=== PATIENT | female | born 1950 | race Caucasian/White ===

== ENCOUNTER → 2017-04-28 | Outpatient (CLI) | payer MEDICARE, OTHER ==
[~2017-04-28] MED LIST: ALLEGRA ALLERG180 MG PO; ASPIR 8181 MG PO; ASPIRIN325 PO; ATORVASTATIN CA40 MG PO; BAYER PO; CALTRATE 600+D1 EAC1 PO; COLACE100 MG PO; HYDROCODONE-AP1 EAC6 PO; LISINOPRIL-HCT1 EACH PO; METAMUCIL1 EAC1 PO; MILK OF MA2400 MG/10 PO; MIRALAX17 GM PO; NAPROSYN500 MG PO; OXYCODONE HCL 55 MG PO; PANTOPRAZOLE SO40 M1 PO; SIMVASTATIN40 MG PO; TRAMADOL 50 MG50 MG PO; WELCHOL 625 MG625 M1 PO; XARELTO10 MG PO
== END ==
LOC: M.RAD 13:58
DX: M47.896 Other spondylosis, lumbar region (principal); M25.552 Pain in left hip

== ENCOUNTER → 2017-08-17 | Day surgery (SDC) | payer MEDICARE, OTHER ==
--- NOTE | ~2017-08-17 | PROC ---
[address] [address] PROCEDURE REPORT Name: EVELYN CHRISTIANSON Room: [facility].#: [id number] Admission: 08/17/17 Attend Phys: Lamonte Mo MD Discharge: Date of : 48 Report #: [id number] THIS REPORT FOR: //name// For GI report, please see the Provation report in Perceptive 7 content. By: 0627Medical Records Staff [facility] /CYNTHIA
[2017-08-17 12:58] LABS: HEMATOCRIT 42.9 % (37.0-47.0); HEMOGLOBIN 14.3 gm/dL (12.0-15.0); MCH 30.6 pg (26.0-34.0); MCHC 33.4 g/dL (28.0-37.0); MCV 91.6 fL (80.0-100.0); MPV 8.8 fl. (7.2-11.1); RBC 4.69 mil/uL (4.20-5.00); RDW-CV 13.7 % (10.5-14.5); WBC 8.2 thou/uL (4.0-11.0)
[2017-08-17 13:08] LABS: CALCIUM 9.4 mg/dL (8.5-10.1); CREATININE 0.9 mg/dL (0.6-1.3); POTASSIUM 3.5 mmol/L (3.5-5.1)
[2017-08-17 13:13] LABS: ALBUMIN 3.5 g/dL (3.4-5.0); TOTAL BILIRUBIN 0.7 mg/dL (<0.1-1.0); TOTAL PROTEIN 7.3 g/dL (6.4-8.2)
--- NOTE | 2017-08-17 17:35 | EKG ---
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 08/17/17 1735 1301 1301 Saul Wu MD, FACC /EPI
--- NOTE | 2017-09-16 10:09 | PATH ---
[address] [address] PATHOLOGY RPT PROCEDURE Name: LIILANE CHRISTIANSON Room: [facility].#: [id number] Admission: 08/17/17 Date of : 48 Discharge: Report #: [id number] Path Case #: [id number] LCA Accession Number: [id number] . 01 Material submitted: . PART A: DISTAL ESOPHAGEAL, RULE OUT JIMENEZ'S PART B: ASCENDING COLON POLYP . 01 Clinical history: . Right upper quadrant abdominal pain and gastroesophageal reflux . 02 Diagnosis: A. Distal esophageal biopsy: - Benign esophageal and gastric/columnar types mucosa with moderate chronic inflammation typical of reflux, negative for goblet cells/diagnostic Jimenez's metaplasia and dysplasia. . B. Ascending colon polyp: - Tubular adenoma, negative for high-grade dysplasia. (NATO:ramy; 08/19/2017) QMS/08/19/2017 . 02 Electronically signed: . Rigoberto Harris MD, Pathologist NPI- [id number] . 01 Gross description: . A. Received in formalin labeled "Liliane Christianson, distal esophageal BX, rule out Jimenez's," are 2 segments of meyer soft tissue measuring 0.7 x 0.2 x 0.2 cm in aggregate dimensions and ranging from 0.3 to 0.4 cm in maximum dimension. The specimen is submitted entirely in cassette A1. . B. Received in formalin labeled "Liliane Christianson, ascending colon polyp," is a single segment of meyer soft tissue measuring 0.3 cm in maximum dimension. The specimen is entirely submitted in cassette B1. (TSD; 08/18/2017) TOB/TOB . 02 Pathologist provided ICD-10: K20.9, D12.2 . 02 CPT . 121451, 526083 Performed at: [address] [id number] MD Quincy Velasco MD Phone: [phone] Performed at: [address] [place] [address] PATHOLOGY RPT PROCEDURE Name: LILIANE CHRISTIANSON Room: [facility]#: [id number] Admission: 08/17/17 Date of : 48 Discharge: Report #: [id number] Path Case #: [id number] [address], [place] [id number] MD Rigoberto Harris MD Phone: [phone]
== END | disposition home or self-care (01) ==
LOC: M.SUR 09:48
PROVIDERS: Internal Medicine Gastroenterology
DX: Z12.11 Encounter for screening for malignant neoplasm of colon (principal); D12.2 Benign neoplasm of ascending colon; K64.8 Other hemorrhoids; K21.0 Gastro-esophageal reflux disease with esophagitis; K44.9 Diaphragmatic hernia without obstruction or gangrene; K22.8 Other specified diseases of esophagus; I10 Essential (primary) hypertension; E78.5 Hyperlipidemia, unspecified; G43.909 Migraine, unspecified, not intractable, without status migrainosus; Z90.710 Acquired absence of both cervix and uterus; Z90.49 Acquired absence of other specified parts of digestive tract; Z98.890 Other specified postprocedural states; Z88.8 Allergy status to other drugs, medicaments and biological substances; Z98.51 Tubal ligation status; Z79.82 Long term (current) use of aspirin; Z79.899 Other long term (current) drug therapy

== ENCOUNTER → 2018-11-08 | Outpatient (CLI) | payer MEDICARE, OTHER | LOC: M.ULTRA 16:00 | DX: L02.91 Cutaneous abscess, unspecified (principal) ==

== ENCOUNTER 2019-12-03 13:30 | Inpatient (IN) | payer MEDICARE, OTHER ==
[~2019-12-03] VITALS: Ht 152.4 cm; Wt 121.6 kg
--- NOTE | ~2019-12-03 | OP ---
[facility] [address] [place] [address] OPERATIVE REPORT Name: EVELYN CHRISTIANSON Room: [address] IN M.R.#: [id number] Admission: 12/04/19 Attend Phys: Narendra Claros, Discharge: Date of : 48 Report #: [id number] THIS REPORT FOR: //name// cc: Marycruz Ulrich Linda J. DO ~ CC: Marycruz Claros DATE OF SERVICE: 12/05/2019 PREOPERATIVE DIAGNOSIS: Left abdominal wall abscess. POSTOPERATIVE DIAGNOSIS: Left abdominal wall abscess. OPERATION: Excisional debridement of abdominal wall, 6 x 6 cm. SURGEON: Yrn Batista MD ANESTHESIA: General. ESTIMATED BLOOD LOSS: Minimal. SPECIMEN: Deep tissue for culture. DESCRIPTION OF PROCEDURE: After informed consent was obtained, the patient was brought to the operating room and placed supine. SCDs were placed and working, preoperative antibiotics were administered, general anesthesia was induced. The abdomen was prepped and draped in the usual sterile fashion. This was an excisional debridement. Depth was down through the muscle. 100% of the wound was debrided. Post-debridement wound area was 6 x 6 cm. There were no complications. I took the cautery and excised away all of the necrotic tissue down through the muscle. This was excisional. The area was then irrigated and packed with sterile gauze. Sterile dressings were applied. COMPLICATIONS: None. DISPOSITION: The patient was taken to recovery in satisfactory condition. By: [id number] Batista MD /nt
[~2019-12-03 13:30] MED LIST changes: -ATORVASTATIN CA40 MG PO; +LIPITOR40 MG PO
[2019-12-03 13:39] VITALS: BP 152/58
[2019-12-03 14:17] LABS: ABSOLUTE LYMPHOCYTES 1.4 thou/uL (0.8-5.3); ABSOLUTE MONOCYTES 0.8 thou/uL (0.0-1.2); ABSOLUTE NEUTROPHILS 11.1 thou/uL (1.6-8.1); BASOPHILS 0.3 %; EOSINOPHILS 0.3 %; HEMATOCRIT 40.3 % (37.0-47.0); HEMOGLOBIN 13.5 gm/dL (12.0-15.0); LYMPHOCYTES 10.3 %; MCH 30.1 pg (26.0-34.0); MCHC 33.5 g/dL (28.0-37.0); MCV 89.7 fL (80.0-100.0); MONOCYTES 6.2 %; MPV 9.2 fl. (7.2-11.1); NUCLEATED RBCS 0 /100WBC; PLATELET COUNT* 299 thou/uL (150-400); POLYS 82.9 %; RBC 4.49 mil/uL (4.20-5.00); RDW-CV 13.8 % (10.5-14.5); WBC 13.4 thou/uL (4.0-11.0)
[2019-12-03 14:21] LABS: CALCIUM 9.2 mg/dL (8.5-10.1); CREATININE 0.9 mg/dL (0.6-1.3); POTASSIUM 3.4 mmol/L (3.5-5.1)
[2019-12-03 14:25] LABS: ALBUMIN 3.3 g/dL (3.4-5.0); MAGNESIUM 1.8 mg/dL (1.8-2.4); TOTAL BILIRUBIN 0.8 mg/dL (<0.1-1.0); TOTAL PROTEIN 7.8 g/dL (6.4-8.2)
[2019-12-03 17:14] LABS: URINE BILIRUBIN NEGATIVE (Negative); URINE BLOOD 1+ (Negative); URINE CLARITY CLEAR; URINE COLOR YELLOW; URINE GLUCOSE-RANDOM NEGATIVE (Negative); URINE KETONES NEGATIVE (Negative); URINE LEUKOCYTES-REFLEX TRACE (Negative); URINE NITRITE-REFLEX NEGATIVE (Negative); URINE PROTEIN NEGATIVE (Negative); URINE SPECIFIC GRAVITY 1.015 (1.005-1.030); URINE UROBILINOGEN 0.2 E.U./dl (0.2-1.0)
[2019-12-03 17:26] LABS: BACTERIA-REFLEX 1-9 Few /HPF (None Seen); CASTS None Seen /LPF (None Seen); CRYSTALS None Seen /LPF (None Seen); SQUAMOUS 4-10 Moderate /LPF (0-3); URINE RBC 0-2 Rare /HPF (0-2); URINE WBC-REFLEX 0-5 Rare /HPF (0-5)
[2019-12-03 19:15] VITALS: BP 107/59
[2019-12-03 20:30] VITALS: BP 118/57
--- NOTE | 2019-12-04 05:56 | NUR ---
PATIENT ARRIVED PRIOR TO SHIFT CHANGE. PATIENT ADMISSION HISTORY AND ASSESSMENT WAS COMPLETED CHARTED. ABD WAS PLACED OVER ABDOMINAL ABCESS AND PICTURE WAS PLACED IN CHART. PATIENT HAS BEEN NPO SINCE MIDNIGHT FOR POSSIBLE I&D TODAY. WILL CONTINUE TO MONITOR.
[2019-12-04 09:25] LABS: CALCIUM 8.6 mg/dL (8.5-10.1); CREATININE 0.8 mg/dL (0.6-1.3); POTASSIUM 3.2 mmol/L (3.5-5.1)
[2019-12-04 09:28] LABS: MAGNESIUM 1.9 mg/dL (1.8-2.4)
[2019-12-04 09:35] VITALS: BP 145/59
--- NOTE | 2019-12-04 15:45 | EKG ---
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
--- NOTE | 2019-12-04 21:31 | NUR ---
PT CONTINUE TON ISOLATION FOR MRSA IN ABD WOUND.
[2019-12-05] VITALS: BP 140/51
[2019-12-05 01:03] VITALS: BP 140/51
[2019-12-05 03:42] LABS: HEMATOCRIT 36.7 % (37.0-47.0); MCH 29.8 pg (26.0-34.0); MCHC 32.8 g/dL (28.0-37.0); MCV 90.7 fL (80.0-100.0); MPV 8.6 fl. (7.2-11.1); RBC 4.05 mil/uL (4.20-5.00); RDW-CV 13.6 % (10.5-14.5); WBC 7.6 thou/uL (4.0-11.0)
[2019-12-05 03:45] LABS: CALCIUM 8.4 mg/dL (8.5-10.1); CREATININE 0.7 mg/dL (0.6-1.3); MAGNESIUM 1.9 mg/dL (1.8-2.4); POTASSIUM 4.2 mmol/L (3.5-5.1)
--- NOTE | 2019-12-05 05:31 | NUR ---
PT SLEPT FAIRLY WELL SHE STATES OVERNIGHT, RECEIVING IV MORPHINE AT HS FOR CO ABD WOUND PAIN WITH GOOD RESULT. UP WITH SBA TO BR TO VOID. LWRIST IVF INFUSED PER PUMP AND ABX GIVEN ORDERED. POTASSIUM REPLACED AND LAB WNL THIS MORNING. PT HAS BEEN NPO SINCE MIDNIGHT FOR I&D ABD WOUND THIS MORNING IN OR. PT REPORTS "PIMPLE" ERUPTING ON R KNEE, DR AWARE SHE STATES. REMAINS ON CONTACT ISOLATION FOR MRSA WOUND. TO HAVE VANC TROUGH 1130 THIS MORNING. AOX4, ABLE TO USE CALL LITE AND MAKE NEEDS KNOWN.
[2019-12-05 06:20] VITALS: BP 181/76
[2019-12-05 09:00] VITALS: BP 121/91
[2019-12-05 12:35] VITALS: BP 130/77
--- NOTE | 2019-12-05 19:36 | NUR ---
PATIENT RESTING IN BED. PATIENT IS UP STANDBY ASSIST.PATIENT HAS I&D OF LUQ THIS AM WITHOUT INCIDENT. PATIENT HAS HAD COMPALINTS OF PAIN, TREATED ADEQUATELY WITH MEDICATION. PATIENT DENIES ANY NEEDS AT THIS TIME. CALL LIGHT WITHIN REACH.
[2019-12-05 20:00] VITALS: BP 142/43
--- NOTE | 2019-12-06 04:25 | NUR ---
PT A&O. MEDS GIVEN ORDERED. PAIN MANAGED WITH NORCO. DRESSING C/D/I. PT UP INDEPENDENTLY IN ROOM. ISOLATION FOR MRSA. NO OTHER CONCERNS AT THIS TIME. WILL CONTINUE TO MONITOR.
[2019-12-06 07:50] VITALS: BP 146/56
--- NOTE | 2019-12-06 11:07 | PATH ---
[address] [address] PATHOLOGY RPT PROCEDURE Name: EVELYN CHRISTIANSON Room: [address] IN [facility].#: [id number] Admission: 12/04/19 Date of : 48 Discharge: Report #: [id number] Path Case #: [id number] Note LCA Accession Number: [id number] TESTS RESULT FLAG UNITS REF RANGE LAB Clinician Provided Cytology Information No. of containers..01 Other (Miscellaneous) Source: ABDOMINAL WALL ABSCE Clinician ICD10: 01 L02.211 DIAGNOSIS: 02 ABDOMINAL WALL ABSCESS NEGATIVE FOR MALIGNANT CELLS. NECROTIC AND ACUTELY INFLAMMED FIBROFATTY TISSUE. THIS INTERPRETATION INCLUDES EVALUATION OF A CELL BLOCK. Signed out by: 02 Rigoberto Harris MD, Pathologist NPI- [id number] Performed by: 01 Marycruz Childers, Telegraphic Service Dispatcher ([facility]) Gross description: 01 7ML, BRWN W TISSUE, 1 CB /LCS 12/05/2019 1758 Local FLAG LEGEND: L-Low Normal,H-High Normal,LL-Alert Low,HH-Alert High <-Panic Low,>-Panic High,A-Abnormal,AA-Critical Abnormal Performed at: 01 [facility] [address] [place] [address] Quincy Velasco MD, [address] [address] Rigoberto Harris MD, Specimen Comment: A courtesy copy of this report has been sent to [phone] Specimen Comment: Report sent to Performed at: 01 [facility] [address], [place], [place] [id number] MD Quincy Velasco MD Phone: [phone]
--- NOTE | 2019-12-06 14:00 | NUR ---
SPOKE WITH PT.AND IN ROOM. HE ASSISTS HER NEEDED AT HOME. SHE SAID THEY USUALLY SHARE CHORES. HE USUALLY COOKS THE MEALS AND SHE CLEANS UP. SHE HAS A CANE AND SHOWER SEAT,GRAB BARS. NURSING SAID UP AD JOANNE HERE WITH STEADY GAIT. HAS 14 STAIRS TO GET INSIDE AT HOME WITH A LANDING AFTER THE FIRST 7. SHE DOESN'T WALK MUCH SHE SAID. SHE NOR FEEL THEY CAN DO HER DRESSING CHANGES AT HOME. IS INTERESTED IN HOME HEALTH. SHE CHOSE [facility] LONG MEDICARE PAYS. TOLD HER MEDICARE PAYS 100% FOR VISITS. FAXED REFERRAL TO [facility]. [place]ST[place] FROM CALLED AND SAID THEY CAN ACCEPT ON SERVICE. FAX DISCHARGE ORDERS AT [place] AND CALL TO NOTIFY. NGOZI [phone].
[2019-12-06 15:41] VITALS: BP 146/56
[2019-12-06 16:00] VITALS: BP 143/56
--- NOTE | 2019-12-06 17:53 | NUR ---
PATIENT RESTING IN BED. PATIENT HAS HAD COMPLAINTS OF ABDOMINAL PAIN, TREATED ADEQUATELY WITH MEDICATION. PATIENT IS UP AD JOANNE TO BATHROOM. DRESSING TO LUQ CHANGED BY HAYLEE STUDENT THIS AM. PATIENT HAS GOOD APPETITE. PATIENT DENIES ANY NEEDS AT THIS TIME. CALL LIGHT WITHIN REACH.
[2019-12-06 20:00] VITALS: BP 145/52
[2019-12-07 03:46] LABS: HEMATOCRIT 36.8 % (37.0-47.0); HEMOGLOBIN 12.2 gm/dL (12.0-15.0); MCH 29.6 pg (26.0-34.0); MCHC 33.1 g/dL (28.0-37.0); MCV 89.5 fL (80.0-100.0); MPV 8.6 fl. (7.2-11.1); RBC 4.11 mil/uL (4.20-5.00); RDW-CV 13.8 % (10.5-14.5); WBC 8.3 thou/uL (4.0-11.0)
[2019-12-07 03:52] LABS: MAGNESIUM 1.8 mg/dL (1.8-2.4); POTASSIUM 3.9 mmol/L (3.5-5.1)
--- NOTE | 2019-12-07 04:09 | NUR ---
PT A&O X 4. IV ABX GIVEN ORDERED. UP INDEPENDENTLY IN ROOM. DRESSING TO ABD LUQ C/D/I. ISOLATION MAINTAINED. PT SLEPT ON AND OFF. WILL CONTINUE TO MONITOR.
[2019-12-07] MEDS ORDERED: LINEZOLID600 MG PO (07:33)
[2019-12-07] MEDS ORDERED: HYDROCODON-ACE1 EAC7 PO (07:33)
[2019-12-07 08:00] VITALS: BP 150/67
[2019-12-07 09:23] VITALS: BP 146/56
--- NOTE | 2019-12-07 09:24 | NUR ---
Pt discharging to home today, faxed dc orders and med list to [facility]. No IVABX needs per nurse.
[2019-12-07 10:22] VITALS: BP 146/56
--- NOTE | 2019-12-07 17:45 | NUR ---
PT. AOX4, VSS, DENIES PAIN, MRSA PRECAUTIONS. CALL LIGHT AND PERSONAL BELONGINGS PLACED WITHIN REACH. DC ORDERS RECEIVED. PT. REFUSED TO HAVE DC WOUND PIC TAKEN BY THIS NURSE STATING THAT THE SURGERY TEAM TOOK PICS THIS MORNING AND CHANGED DRESSING. DC PACKET GIVEN TO PT AND DISCUSSED MEDICATIONS, ACTIVITY AND F/UP APPTS. PT. LEFT AFTER LUNCH BY WHEELCHAIR AND PICKED UP BY BY ER.
== END 2019-12-07 14:20 | disposition home health service (06) | DRG 580 ==
LOC: M.ERS 13:30 → M.TBA-ER 16:22 → M.ORTHSURG 19:31
PROVIDERS: Internal Medicine; Personal Emergency Response Attendant; ADMIT Family Medicine; ATTEND Family Medicine
PROC: 0KBL0ZZ Excision of Left Abdomen Muscle, Open Approach (ICD-10-PCS; principal; 2019-12-05)
DX: L02.211 Cutaneous abscess of abdominal wall (principal); Z68.43 Body mass index [BMI] 50.0-59.9, adult; E44.1 Mild protein-calorie malnutrition; L03.311 Cellulitis of abdominal wall; E66.01 Morbid (severe) obesity due to excess calories; I10 Essential (primary) hypertension; G89.29 Other chronic pain; M54.9 Dorsalgia, unspecified; E78.5 Hyperlipidemia, unspecified; B95.62 Methicillin resistant Staphylococcus aureus infection as the cause of diseases classified elsewhere; E87.6 Hypokalemia; Z88.6 Allergy status to analgesic agent; Z88.8 Allergy status to other drugs, medicaments and biological substances; Z86.14 Personal history of Methicillin resistant Staphylococcus aureus infection; Z20.828 Contact with and (suspected) exposure to other viral communicable diseases

== ENCOUNTER → 2019-12-12 | Outpatient (CLI) | payer MEDICARE, OTHER ==
[~2019-12-12] MED LIST changes: +HYDROCODON-ACE1 EAC7 PO; +LINEZOLID600 MG PO
== END ==
LOC: M.WC 09:20
PROVIDERS: ATTEND Surgery
DX: L02.211 Cutaneous abscess of abdominal wall (principal); E66.01 Morbid (severe) obesity due to excess calories; G89.29 Other chronic pain; I10 Essential (primary) hypertension; K21.9 Gastro-esophageal reflux disease without esophagitis; F32.9 Major depressive disorder, single episode, unspecified; Z68.43 Body mass index [BMI] 50.0-59.9, adult; Z90.710 Acquired absence of both cervix and uterus; Z90.49 Acquired absence of other specified parts of digestive tract; Z86.14 Personal history of Methicillin resistant Staphylococcus aureus infection; Z79.82 Long term (current) use of aspirin

== ENCOUNTER 2019-12-19 10:51 | Inpatient (IN) | payer MEDICARE, OTHER ==
[~2019-12-19] VITALS: Ht 152.4 cm; Wt 127.0 kg
--- NOTE | ~2019-12-19 | OP ---
[address] [address] OPERATIVE REPORT Name: EVELYN CHRISTIANSON Room: [address] IN M.R.#: [id number] Admission: 12/19/19 Attend Phys: Narendra Claros, Discharge: Date of : 48 Report #: [id number] THIS REPORT FOR: //name// cc: Marycruz Ulrich Linda J. DO ~ CC: Marycruz Claros DATE OF SERVICE: 12/20/2019 PREOPERATIVE DIAGNOSIS: Left abdominal wound, 7 x 6 x 5 cm. POSTOPERATIVE DIAGNOSIS: Left abdominal wound, 7 x 6 x 5 cm. OPERATION: Excisional debridement of 7 x 6 cm left abdominal nonhealing surgical wound. SURGEON: Yrn Batista MD ANESTHESIA: General. ESTIMATED BLOOD LOSS: Minimal. SPECIMEN: None. DESCRIPTION OF PROCEDURE: After informed consent was obtained, the patient was brought to the operating room and placed supine. SCDs were placed and working, preoperative antibiotics were administered, general anesthesia was induced. The abdomen was prepped and draped in the usual sterile fashion. This was an excisional debridement. Depth was down through the subcutaneous tissue down through the muscle. 100% of the wound was debrided. Post-debridement, wound area was 7 x 6 x 5 cm. I used the cautery to debride away tissue down through the muscle. 100% of the wound was debrided. It was then irrigated copiously with normal saline and packed with sterile gauze. Sterile dressings were applied. COMPLICATIONS: None. DISPOSITION: The patient was taken to recovery in satisfactory condition. By: [id number] Batista MD /nt
[2019-12-19 11:05] VITALS: BP 151/56
[2019-12-19 11:51] LABS: ABSOLUTE EOSINOPHILS 0.1 thou/uL (0.0-0.7); ABSOLUTE LYMPHOCYTES 1.3 thou/uL (0.8-5.3); ABSOLUTE MONOCYTES 0.4 thou/uL (0.0-1.2); ABSOLUTE NEUTROPHILS 5.6 thou/uL (1.6-8.1); BASOPHILS 0.5 %; EOSINOPHILS 1.4 %; HEMATOCRIT 38.4 % (37.0-47.0); HEMOGLOBIN 12.6 gm/dL (12.0-15.0); LYMPHOCYTES 17.9 %; MCH 29.2 pg (26.0-34.0); MCHC 32.7 g/dL (28.0-37.0); MCV 89.4 fL (80.0-100.0); MONOCYTES 5.2 %; MPV 7.6 fl. (7.2-11.1); NUCLEATED RBCS 0 /100WBC; PLATELET COUNT* 175 thou/uL (150-400); WBC 7.4 thou/uL (4.0-11.0)
[2019-12-19 11:52] LABS: URINE BILIRUBIN NEGATIVE (Negative); URINE BLOOD 2+ (Negative); URINE CLARITY CLEAR; URINE COLOR YELLOW; URINE GLUCOSE-RANDOM NEGATIVE (Negative); URINE KETONES TRACE (Negative); URINE NITRITE-REFLEX NEGATIVE (Negative); URINE PROTEIN NEGATIVE (Negative); URINE UROBILINOGEN 0.2 E.U./dl (0.2-1.0)
[2019-12-19 11:53] LABS: URINE LEUKOCYTES-REFLEX 2+ (Negative)
[2019-12-19 12:03] LABS: CALCIUM 8.7 mg/dL (8.5-10.1); CREATININE 0.9 mg/dL (0.6-1.3); POTASSIUM 3.5 mmol/L (3.5-5.1)
[2019-12-19 12:06] LABS: CASTS None Seen /LPF (None Seen); CRYSTALS None Seen /LPF (None Seen); MUCUS 0-3 Light strn/LPF (None Seen); SQUAMOUS 4-10 Moderate /LPF (0-3)
[2019-12-19 12:07] LABS: ALBUMIN 3.4 g/dL (3.4-5.0); TOTAL BILIRUBIN 0.6 mg/dL (<0.1-1.0); TOTAL PROTEIN 6.9 g/dL (6.4-8.2)
[2019-12-19 15:16] VITALS: BP 156/63
[2019-12-19 16:00] VITALS: BP 153/52
[2019-12-19 17:02] LABS: CALCIUM 8.8 mg/dL (8.5-10.1); CREATININE 0.8 mg/dL (0.6-1.3); POTASSIUM 3.6 mmol/L (3.5-5.1)
[2019-12-19 17:05] LABS: MAGNESIUM 1.8 mg/dL (1.8-2.4); PHOSPHORUS* 3.1 mg/dL (2.5-4.9)
--- NOTE | 2019-12-19 17:26 | NUR ---
pt remained alert and oriented. pt resting in bed. awaiting dressing change supplies. isolation maintained. fall risk precautions in place. hourly rounding completed. will continue to monitor.
--- NOTE | 2019-12-19 17:56 | NUR ---
THIS NURSE AGREES WITH ASSESSMENT BY ORIENTEE.
[2019-12-19 22:45] VITALS: BP 126/55
--- NOTE | 2019-12-20 06:41 | NUR ---
PATIENT HAS SLEPT OFF AND ON DURING THE NIGHT. VSS ON RA. MEDICATIONS GIVEN ORDERED AND CHARTED. PATIENT HAS REMAINED NPO SINCE MIDNIGHT D/T SCHEDULED I&D TO BE DONE THIS AM. DRESSING TO LEFT LOWER QUADRANT IS C/D/I. IV IN LEFT AC-NS W/2OK+@ 100ML/HR. PATIENT TRANSFERRED TO TELEMETRY ROOM 205 THIS AM. REPORT GIVEN TO NIGHT NURSE RIA.
--- NOTE | 2019-12-20 07:20 | NUR ---
CHANGE OF SHIFT BEDSIDE REPORT GIVEN PATIENT SEEN AT BEDSIDE, IN BED ASLEEP ASSUMED PATIENT CARE
[2019-12-20 08:00] VITALS: BP 165/61
--- NOTE | 2019-12-20 08:24 | EKG ---
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
--- NOTE | 2019-12-20 10:48 | NUR ---
WOUND NURSE: UNABLE TO ASSESS PATIENT AT THIS TIME REALTED TO BEING IN SURGERY FOR I/D OF ABDOMINAL WOUND. WILL FOLLOW UP AT LATER TIME
--- NOTE | 2019-12-20 13:01 | NUR ---
Pt out of room for debridement, spoke with in room. Pt normally independent. Pt recently dc to home with [facility] and IVABX, plan to resume at dc. Pt has a cane that she uses PRN. No home o2. Hx of skilled at [facility]. Following
[2019-12-20 16:40] VITALS: BP 147/52
[2019-12-21] VITALS: BP 153/66
[2019-12-21 08:00] VITALS: BP 135/65
--- NOTE | 2019-12-21 11:05 | NUR ---
WOUND NURSE: KARL WITH PRIMARY RN. POST OP DRESSING REMAINS INTACT AND DR. ATKINS TO CHANGE WITH EVAL LATER TODAY. SPOKE WITH PT WHO WAS UP IN CHAIR. DRESSING EVALUATED AND WAS C/D/I. PT DENIES QUESTIONS OR NEEDS AT THIS TIME.
--- NOTE | 2019-12-21 14:44 | NUR ---
Nutrition: Pt admitted with diarrhea. Assessed for high BMI. She was NPO and now has regular diet ordered. Post-op abd wound. Had MRSA on abd. Wt: 280#. H/o GERD, HTN. Physician indicated mild PCM - defer. Albumin 3.4. Spoke with RN, pt eating well. Low nutrition risk.
--- NOTE | 2019-12-21 16:06 | NUR ---
Surg following for wound care. IVABX. Therapy evals. ?[place], current with [facility]
[2019-12-21 16:14] VITALS: BP 139/65
[2019-12-21 21:13] VITALS: BP 155/73
--- NOTE | 2019-12-22 04:33 | NUR ---
PT RECEIVED ALL ABX/FLUIDS SCHEDULED. UP STANDBY ASSIST TO COMMODE REQUIRES ASSISTANCE WITH TOILETING. REPORTS SLIGHT ABDOMINAL PAIN BUT NOT ENOUGH TO NEED PAIN MEDICATION. SHE SAYS IT HURTS WHEN MOVING. ALERT AND ORIENTED, ROOM AIR. ISO PRECAUTIONS
[2019-12-22 05:42] LABS: HEMATOCRIT 30.2 % (37.0-47.0); MCH 30.1 pg (26.0-34.0); MCHC 33.2 g/dL (28.0-37.0); MCV 90.7 fL (80.0-100.0); MPV 8.2 fl. (7.2-11.1); RBC 3.33 mil/uL (4.20-5.00); WBC 4.8 thou/uL (4.0-11.0)
[2019-12-22 06:29] LABS: ALBUMIN 2.7 g/dL (3.4-5.0); CALCIUM 8.1 mg/dL (8.5-10.1); CREATININE 0.7 mg/dL (0.6-1.3); MAGNESIUM 1.5 mg/dL (1.8-2.4); POTASSIUM 3.8 mmol/L (3.5-5.1); TOTAL BILIRUBIN 0.4 mg/dL (<0.1-1.0); TOTAL PROTEIN 5.5 g/dL (6.4-8.2)
[2019-12-22 08:00] VITALS: BP 148/71
[2019-12-22 16:00] VITALS: BP 144/69
[2019-12-22 22:20] VITALS: BP 155/71
[2019-12-23 00:14] VITALS: BP 144/71
[2019-12-23 05:28] LABS: HEMOGLOBIN 9.9 gm/dL (12.0-15.0); MCH 29.8 pg (26.0-34.0); MCHC 33.1 g/dL (28.0-37.0); MCV 90.2 fL (80.0-100.0); MPV 8.8 fl. (7.2-11.1); RBC 3.33 mil/uL (4.20-5.00); RDW-CV 14.3 % (10.5-14.5); WBC 5.1 thou/uL (4.0-11.0)
[2019-12-23 05:57] LABS: ALBUMIN 2.5 g/dL (3.4-5.0); CALCIUM 8.2 mg/dL (8.5-10.1); CREATININE 0.8 mg/dL (0.6-1.3); MAGNESIUM 1.6 mg/dL (1.8-2.4); POTASSIUM 3.5 mmol/L (3.5-5.1); TOTAL BILIRUBIN 0.2 mg/dL (<0.1-1.0); TOTAL PROTEIN 5.5 g/dL (6.4-8.2)
--- NOTE | 2019-12-23 08:38 | NUR ---
PATIENT HAS SLEPT OFF AND ON DURING THE NIGHT. VSS ON RA. MEDICATIONS GIVEN ORDERED AND CHARTED. PATIENT REMAINS ON ISOLATION FOR MRSA AND C-DIFF. PATIENT UP AD-JOANNE IN ROOM TO BSC AND CHAIR. DRESSING TO LEFT LOWER QUADRANT IS C/D/I. NEW IV PLACE IN LEFT UPPER ARM-NS W/2Ok+ @ 100ML/HR. ABT'S GIVEN PO AND IV WITHOUT AND ADVERSE SIDE EFFECTS NOTED. PATIENT INSTRUCTED TO USE CALL LIGHT WHEN NEEDING ASSISTANCE. HOURLY ROUNDS MADE. WILL CONTINUE WITH PLAN OF CARE AND NURSING TO MONITOR.
[2019-12-23 16:00] VITALS: BP 134/71
--- NOTE | 2019-12-23 18:01 | NUR ---
PT IS AO X4 VSS, CURRENTLY ON ISOLATION FOR MRSA WOUND AND CDIFF. PT HAD ABSCESS OF ABD THAT HAD I&D DONE A FEW DAYS AGO. BANDAGE HAS MODERATE AMOUNT OF DARK BROWN DRAINAGE ON IT. PT IS OBESE AND UP AD JOANNE WITH HELP OF WALKER. SHE HAS HAD TWO BMs TODAY AND THE LAST WAS MORE FORMED THAN THE FIRST. SHE HAS SAT UP IN THE CHAIR TODAY AND ON BEDSIDE. MEDS WERE GIVEN PER ORDER, PT ATE MOST OF ALL MEALS TODAY WITHOUT COMPLAINT OF NAUSEA OR VOMITING.
[2019-12-23 21:45] VITALS: BP 158/58
[2019-12-24] VITALS: BP 157/69
[2019-12-24 05:13] LABS: HEMATOCRIT 29.6 % (37.0-47.0); HEMOGLOBIN 9.9 gm/dL (12.0-15.0); MCH 30.1 pg (26.0-34.0); MCHC 33.4 g/dL (28.0-37.0); MCV 90.1 fL (80.0-100.0); MPV 9.1 fl. (7.2-11.1); RBC 3.29 mil/uL (4.20-5.00); WBC 6.9 thou/uL (4.0-11.0)
--- NOTE | 2019-12-24 05:35 | NUR ---
PT REPORTS PAIN IN LEGS AND GIVEN HYDROCODONE SLEPT WELL, ALERT AND ORIENTED. SHE IS STANDBY ASSIST TO RESTROOM. RECEIVED ALL MEDS SCHEDULED.
[2019-12-24 06:42] LABS: CALCIUM 7.8 mg/dL (8.5-10.1); CREATININE 0.8 mg/dL (0.6-1.3); MAGNESIUM 1.5 mg/dL (1.8-2.4); POTASSIUM 3.9 mmol/L (3.5-5.1)
[2019-12-24 08:00] VITALS: BP 152/60
--- NOTE | 2019-12-24 10:09 | NUR ---
RECIEVED REPORT AROUND 0715. ASSUMED CARE. PT IN CHAIR THIS AM. LEFT AC IV INTACT. ABX RUNNING. MED/SURG STATUS. ISOLATION PRECAUTIONS INTACT. BOWELS ARE MORE FORMED THIS AM. PT STATED "NO" FOR ANY PAIN. PT ALSO STATED "I STARTED HAVING FORMED STOOLS YESTERDAY" MEDS GIVEN THIS AM PER APR. CALL LIGHT [place] IVONNE. WILL CONTINUE TO MONITOR.
--- NOTE | 2019-12-24 14:38 | NUR ---
SPOKE WITH PRIMARY NURSE AND DRESSING CHANGES TO ABDOMEN STILL BEING DONE PER GENERAL SURGERY. REPORT CURRENT DRESSING IS C/D/I. INSTRUCTED TO NOTIFY WOUND CARE NURSE IF GENRERAL SURGERY IS TO STOP WOUND CARE AND WE WILL ELVALUATE AND TREAT AT THAT TIME, SPOKE WITH PT WHO DENIES NEEDS AT THIS TIME. WILL CONTINUE TO FOLLOW PT AND ADRESS ANY NEEDS.
--- NOTE | 2019-12-24 14:51 | NUR ---
RIGHT CEPHALIC VESSEL ACCESSED FOR 4 TURKISH SINGLE LUMEN PICC. LINE PRE-TRIMMED TO 38CM AND ADVANCED BUT RESISTANCE MET AT THE AXILLA-SUBCLAVIAN JUNCTION. LINE PULLED BACK AND READVANCED SEVERAL TIMES BUT UNABLE TO PASS TIP BEYOND AXILLA-SUBCLAVIAN JUNCTION. LINE PULLED OUT AND PRESSURE APPLIED WITH GAUZE AND TAPE FOR 5 MINUTES. RIGHT BASILIC VESSEL ACCESSED AND LINE ADVANCED TO THE ZERO CHHAYA WITH NO RESISTANCE MET. UPPER ARM CIRCUMFERENCE ABOVE INSERTION SITE= 19 1/2". SHERLOCK MAGNET AND 3CG CONFIRMATION OF TIP TERMINATION AT THE CAVOATRIAL JUNCTION APPRECIATED. GUIDEWIRE REMOVED, LINE FLUSHED AND INSERTION SITE DRESSED. REPORT GIVEN TO DELFINA WELLINGTON. . UPPER ARM CIRCUMFERENCE ABOVE INSERTION SITE= 19 1/2"
[2019-12-24 16:00] VITALS: BP 146/54
--- NOTE | 2019-12-24 18:08 | NUR ---
PICC PLACED THIS SHIFT. WILL BE DISCHARGED WITH PICC PER . IS TO HAVE IV ABX AFTER DISCHARGE. POSSIBLE DISCHARGE TOMORROW IF CAN TOLERATE ABX. LEFT UPPER ARM IV D/C. MED/SURG STATUS. ISOLATION INTACT. WOUND LLQ CLEAN. ABD APPLIED. NO PACKING. GENERALIZED EDEMA. PT SITTING IN CHAIR. NO REPORTS OF PAIN THIS SHIFT. VISITED THIS SHIFT. PT IN CHAIR. DID NOTE SOME REDNESS ON BOTTOM THIS SHIFT. MEPILEX IN ROOM TO BE APPLIED. MEDS PER APR. HOURLY ROUNDING PERFORMED. CALL LIGTH WITHIN REACH. WILL CONTINUE TO MONITOR.
[2019-12-24 20:00] VITALS: BP 150/71
[2019-12-25] VITALS: BP 145/67
[2019-12-25 07:38] LABS: ALBUMIN 2.8 g/dL (3.4-5.0); CALCIUM 8.6 mg/dL (8.5-10.1); CREATININE 0.8 mg/dL (0.6-1.3); MAGNESIUM 1.5 mg/dL (1.8-2.4); TOTAL BILIRUBIN 0.5 mg/dL (<0.1-1.0); TOTAL PROTEIN 6.4 g/dL (6.4-8.2)
--- NOTE | 2019-12-25 09:00 | NUR ---
PT IS ALERT AND ORIENTED UP IN CHAIR T/O MORNING PLAN TO DC TODAY PICC IN RIGHT UPPER ARM CONT WILL CONT AT HOME WITH HOME HEALTH MEDS SENT TO PHARMACY PT DENIES PAIN AT THIS PT HAD BM STILL LOOSE BUT BETTER DISCHARGE INSTRUCTIONS TO BE GIVEN AND FOLLOW UP APPOINTMENTS MADE OR WILL BE MADE LOOKED AT WOUND REINFORCED LAST HS CALL LIGHT IN REACH
[2019-12-25] MEDS ORDERED: LACTOBACILLUS1 EACH PO (09:13)
[2019-12-25] MEDS ORDERED: ZOFRAN ODT4 MG PO (09:13)
[2019-12-25] MEDS ORDERED: LEVOFLOXACIN500 MG PO (09:13)
[2019-12-25] MEDS ORDERED: VANCOMYCIN1.25 GM/12 IV (09:13)
[2019-12-25] MEDS ORDERED: VANCOMYCIN HCL250 MG PO (09:13)
[2019-12-25] MEDS ORDERED: BENTYL 20 MG TA20 M1 PO (09:13)
[2019-12-25 09:27] VITALS: BP 145/69
[2019-12-25 09:27] LABS: HEMATOCRIT 35.5 % (37.0-47.0); HEMOGLOBIN 11.8 gm/dL (12.0-15.0); MCH 29.7 pg (26.0-34.0); MCHC 33.1 g/dL (28.0-37.0); MCV 89.5 fL (80.0-100.0); MPV 8.8 fl. (7.2-11.1); RBC 3.96 mil/uL (4.20-5.00); RDW-CV 14.2 % (10.5-14.5); WBC 8.3 thou/uL (4.0-11.0)
[2019-12-25 11:17] VITALS: BP 145/69
[2019-12-25 11:26] VITALS: BP 145/69
[2019-12-25 11:28] VITALS: BP 145/69
[2019-12-25 13:39] VITALS: BP 145/69
--- NOTE | 2019-12-25 14:02 | NUR ---
pt d/c'g home w/ [facility] confirmed receipt of orders and stated they are able to resume care. pt notified that home health agency will call her to sched visits. pt agreeable to plan.
--- NOTE | 2019-12-25 16:00 | NUR ---
CALLED IN VERBAL ORDER FOR IV VANCOMYCIN WRITTEN TO [facility],PER [facility]S REQUEST.
--- NOTE | 2019-12-25 16:29 | NUR ---
ABRIL FAXED REFERRAL TO [facility] [phone]. BRENDA CONTACTED THIS CM TO INFORM MEDICATION AND SUPPLIES WILL BE DELIVERED THIS EVENING [phone]. [facility] CLINICAL LIASON, GADIEL WILL INSTRUCT PT ON HOW TO ADMINISTER MED. PER BRENDA, PT AGREED TO SELF-PAY PT DOES NOT HAVE MEDICARE PART D. MEDICATION $40 AND SUPPLIES $15. CARON CALLED CM TO INFORM PT CONTACTED HER TO INFORM [facility] HAD CALLED PT AND STATED THEY WILL BE THERE THIS EVENING TO BRING MED AND SUPPLIES.
== END 2019-12-25 14:00 | disposition home health service (06) | DRG 853 ==
LOC: M.ERS 10:51 → M.TBA-ER 14:30 → M.2W 14:30 → M.ORTHSURG 14:30 → M.2W 12-20 07:20
PROVIDERS: Family Medicine; Internal Medicine; ADMIT Family Medicine; ATTEND Family Medicine
DX: A41.02 Sepsis due to Methicillin resistant Staphylococcus aureus (principal); E43 Unspecified severe protein-calorie malnutrition; A04.72 Enterocolitis due to Clostridium difficile, not specified as recurrent; N39.0 Urinary tract infection, site not specified; L03.311 Cellulitis of abdominal wall; Z68.43 Body mass index [BMI] 50.0-59.9, adult; L02.211 Cutaneous abscess of abdominal wall; E78.5 Hyperlipidemia, unspecified; I10 Essential (primary) hypertension; E66.01 Morbid (severe) obesity due to excess calories; E87.6 Hypokalemia; K21.9 Gastro-esophageal reflux disease without esophagitis; E83.42 Hypomagnesemia; D69.6 Thrombocytopenia, unspecified; B96.5 Pseudomonas (aeruginosa) (mallei) (pseudomallei) as the cause of diseases classified elsewhere; B95.62 Methicillin resistant Staphylococcus aureus infection as the cause of diseases classified elsewhere; Z20.828 Contact with and (suspected) exposure to other viral communicable diseases; Z79.82 Long term (current) use of aspirin; Z79.899 Other long term (current) drug therapy; Z88.8 Allergy status to other drugs, medicaments and biological substances; Z98.42 Cataract extraction status, left eye; Z98.41 Cataract extraction status, right eye; Z90.49 Acquired absence of other specified parts of digestive tract; Z90.710 Acquired absence of both cervix and uterus

== ENCOUNTER → 2020-01-02 | Outpatient (CLI) | payer MEDICARE, OTHER ==
[~2020-01-02] MED LIST changes: +BENTYL 20 MG TA20 M1 PO; +LACTOBACILLUS1 EACH PO; +LEVOFLOXACIN500 MG PO; +VANCOMYCIN HCL250 MG PO; +VANCOMYCIN1.25 GM/12 IV; +ZOFRAN ODT4 MG PO
== END ==
LOC: M.WC 09:19
PROVIDERS: ATTEND Surgery
DX: L02.211 Cutaneous abscess of abdominal wall (principal); E66.01 Morbid (severe) obesity due to excess calories; G89.29 Other chronic pain; I10 Essential (primary) hypertension; K21.9 Gastro-esophageal reflux disease without esophagitis; F32.9 Major depressive disorder, single episode, unspecified; Z68.43 Body mass index [BMI] 50.0-59.9, adult; Z90.49 Acquired absence of other specified parts of digestive tract; Z90.710 Acquired absence of both cervix and uterus; Z86.14 Personal history of Methicillin resistant Staphylococcus aureus infection; Z79.82 Long term (current) use of aspirin

== ENCOUNTER → 2020-01-23 | Outpatient (CLI) | payer MEDICARE, OTHER | LOC: M.ULTRA 15:25 | PROVIDERS: ATTEND Family Medicine | DX: M17.12 Unilateral primary osteoarthritis, left knee (principal); I70.90 Unspecified atherosclerosis; M79.605 Pain in left leg ==

== ENCOUNTER → 2020-01-28 | Outpatient (CLI) | payer MEDICARE, OTHER | LOC: M.MRI 06:36 | PROVIDERS: ATTEND Family Medicine | DX: S83.242A Other tear of medial meniscus, current injury, left knee, initial encounter (principal); M25.762 Osteophyte, left knee; X58.XXXA Exposure to other specified factors, initial encounter; Y93.89 Activity, other specified; Y92.89 Other specified places as the place of occurrence of the external cause; Y99.8 Other external cause status ==

== ENCOUNTER → 2020-08-29 | Outpatient (CLI) | payer MEDICARE, OTHER | LOC: M.WC 09:44 | PROVIDERS: ATTEND Family Medicine | DX: T81.89XA Other complications of procedures, not elsewhere classified, initial encounter (principal); N61.1 Abscess of the breast and nipple; S21.002A Unspecified open wound of left breast, initial encounter; B95.62 Methicillin resistant Staphylococcus aureus infection as the cause of diseases classified elsewhere; I10 Essential (primary) hypertension; G89.29 Other chronic pain; M54.9 Dorsalgia, unspecified; M19.90 Unspecified osteoarthritis, unspecified site; K21.9 Gastro-esophageal reflux disease without esophagitis; E78.5 Hyperlipidemia, unspecified; E66.01 Morbid (severe) obesity due to excess calories; F32.9 Major depressive disorder, single episode, unspecified; Z79.899 Other long term (current) drug therapy; Z96.651 Presence of right artificial knee joint; Z90.49 Acquired absence of other specified parts of digestive tract; Z90.710 Acquired absence of both cervix and uterus; Z98.51 Tubal ligation status; X58.XXXA Exposure to other specified factors, initial encounter; Y93.89 Activity, other specified; Y92.238 Other place in hospital as the place of occurrence of the external cause; Y99.8 Other external cause status; Z68.43 Body mass index [BMI] 50.0-59.9, adult; Z79.82 Long term (current) use of aspirin; Y83.8 Other surgical procedures as the cause of abnormal reaction of the patient, or of later complication, without mention of misadventure at the time of the procedure ==

== ENCOUNTER → 2020-09-04 | Outpatient (CLI) | payer MEDICARE, OTHER | LOC: M.WC 10:23 | PROVIDERS: ATTEND Family Medicine | DX: T81.89XD Other complications of procedures, not elsewhere classified, subsequent encounter (principal); N61.1 Abscess of the breast and nipple; S21.002D Unspecified open wound of left breast, subsequent encounter; A49.02 Methicillin resistant Staphylococcus aureus infection, unspecified site; I10 Essential (primary) hypertension; G89.29 Other chronic pain; M54.9 Dorsalgia, unspecified; M19.90 Unspecified osteoarthritis, unspecified site; K21.9 Gastro-esophageal reflux disease without esophagitis; E78.5 Hyperlipidemia, unspecified; E66.01 Morbid (severe) obesity due to excess calories; F32.9 Major depressive disorder, single episode, unspecified; Z98.51 Tubal ligation status; X58.XXXD Exposure to other specified factors, subsequent encounter; Z68.43 Body mass index [BMI] 50.0-59.9, adult; Z79.82 Long term (current) use of aspirin; Y83.8 Other surgical procedures as the cause of abnormal reaction of the patient, or of later complication, without mention of misadventure at the time of the procedure ==

== ENCOUNTER → 2020-09-11 | Outpatient (CLI) | payer MEDICARE, OTHER | LOC: M.WC 09:58 | PROVIDERS: ATTEND Family Medicine | DX: T81.89XD Other complications of procedures, not elsewhere classified, subsequent encounter (principal); N61.1 Abscess of the breast and nipple; S21.002D Unspecified open wound of left breast, subsequent encounter; A49.02 Methicillin resistant Staphylococcus aureus infection, unspecified site; I10 Essential (primary) hypertension; G89.29 Other chronic pain; M54.9 Dorsalgia, unspecified; M19.90 Unspecified osteoarthritis, unspecified site; K21.9 Gastro-esophageal reflux disease without esophagitis; E78.5 Hyperlipidemia, unspecified; E66.01 Morbid (severe) obesity due to excess calories; F32.9 Major depressive disorder, single episode, unspecified; Z98.51 Tubal ligation status; Z68.43 Body mass index [BMI] 50.0-59.9, adult; Z79.82 Long term (current) use of aspirin; X58.XXXD Exposure to other specified factors, subsequent encounter; Y83.8 Other surgical procedures as the cause of abnormal reaction of the patient, or of later complication, without mention of misadventure at the time of the procedure ==

== ENCOUNTER → 2020-09-25 | Outpatient (CLI) | payer MEDICARE, OTHER | LOC: M.WC 09:27 | PROVIDERS: ATTEND Family Medicine | DX: N61.1 Abscess of the breast and nipple (principal); S21.002D Unspecified open wound of left breast, subsequent encounter; A49.02 Methicillin resistant Staphylococcus aureus infection, unspecified site; I10 Essential (primary) hypertension; G89.29 Other chronic pain; M54.9 Dorsalgia, unspecified; M19.90 Unspecified osteoarthritis, unspecified site; K21.9 Gastro-esophageal reflux disease without esophagitis; E78.5 Hyperlipidemia, unspecified; E66.01 Morbid (severe) obesity due to excess calories; F32.9 Major depressive disorder, single episode, unspecified; Z98.51 Tubal ligation status; Z68.43 Body mass index [BMI] 50.0-59.9, adult; Z79.82 Long term (current) use of aspirin; X58.XXXD Exposure to other specified factors, subsequent encounter ==

== ENCOUNTER → 2021-01-28 | Outpatient (CLI) | payer MEDICARE, OTHER | LOC: M.WC 08:00 | PROVIDERS: ATTEND Surgery | DX: L02.211 Cutaneous abscess of abdominal wall (principal); E66.01 Morbid (severe) obesity due to excess calories; E78.5 Hyperlipidemia, unspecified; I10 Essential (primary) hypertension; G89.29 Other chronic pain; K21.9 Gastro-esophageal reflux disease without esophagitis; M19.90 Unspecified osteoarthritis, unspecified site; F32.9 Major depressive disorder, single episode, unspecified; Z86.14 Personal history of Methicillin resistant Staphylococcus aureus infection; Z68.43 Body mass index [BMI] 50.0-59.9, adult; Z22.322 Carrier or suspected carrier of Methicillin resistant Staphylococcus aureus; Z96.651 Presence of right artificial knee joint; Z90.49 Acquired absence of other specified parts of digestive tract; Z90.710 Acquired absence of both cervix and uterus; Z79.82 Long term (current) use of aspirin ==

== ENCOUNTER → 2021-02-04 | Outpatient (CLI) | payer MEDICARE, OTHER | LOC: M.WC 08:44 | PROVIDERS: ATTEND Surgery | DX: L02.211 Cutaneous abscess of abdominal wall (principal); B95.62 Methicillin resistant Staphylococcus aureus infection as the cause of diseases classified elsewhere; M85.80 Other specified disorders of bone density and structure, unspecified site; I10 Essential (primary) hypertension; G89.29 Other chronic pain; M54.9 Dorsalgia, unspecified; M19.90 Unspecified osteoarthritis, unspecified site; K21.9 Gastro-esophageal reflux disease without esophagitis; E78.5 Hyperlipidemia, unspecified; E66.01 Morbid (severe) obesity due to excess calories; F32.9 Major depressive disorder, single episode, unspecified; Z68.43 Body mass index [BMI] 50.0-59.9, adult; Z79.82 Long term (current) use of aspirin; Z79.899 Other long term (current) drug therapy ==

== ENCOUNTER → 2021-02-11 | Outpatient (CLI) | payer MEDICARE, OTHER | LOC: M.WC 08:16 | PROVIDERS: ATTEND Surgery | DX: L02.211 Cutaneous abscess of abdominal wall (principal); B95.62 Methicillin resistant Staphylococcus aureus infection as the cause of diseases classified elsewhere; M85.80 Other specified disorders of bone density and structure, unspecified site; I10 Essential (primary) hypertension; G89.29 Other chronic pain; M54.9 Dorsalgia, unspecified; M19.90 Unspecified osteoarthritis, unspecified site; K21.9 Gastro-esophageal reflux disease without esophagitis; E66.01 Morbid (severe) obesity due to excess calories; F32.9 Major depressive disorder, single episode, unspecified; Z68.43 Body mass index [BMI] 50.0-59.9, adult; E78.5 Hyperlipidemia, unspecified; Z79.82 Long term (current) use of aspirin; Z79.899 Other long term (current) drug therapy ==

== ENCOUNTER → 2021-02-18 | Outpatient (CLI) | payer MEDICARE, OTHER | LOC: M.WC 08:18 | PROVIDERS: ATTEND Surgery | DX: L02.211 Cutaneous abscess of abdominal wall (principal); L02.219 Cutaneous abscess of trunk, unspecified; B95.62 Methicillin resistant Staphylococcus aureus infection as the cause of diseases classified elsewhere; I10 Essential (primary) hypertension; G89.29 Other chronic pain; E66.01 Morbid (severe) obesity due to excess calories; E78.5 Hyperlipidemia, unspecified; K21.9 Gastro-esophageal reflux disease without esophagitis; M54.9 Dorsalgia, unspecified; M85.80 Other specified disorders of bone density and structure, unspecified site; M19.90 Unspecified osteoarthritis, unspecified site; F32.9 Major depressive disorder, single episode, unspecified; Z68.43 Body mass index [BMI] 50.0-59.9, adult; Z79.82 Long term (current) use of aspirin ==

== ENCOUNTER → 2021-02-25 | Outpatient (CLI) | payer OTHER | LOC: M.WC 08:43 | PROVIDERS: ATTEND Surgery | DX: L02.211 Cutaneous abscess of abdominal wall (principal); L02.219 Cutaneous abscess of trunk, unspecified; B95.62 Methicillin resistant Staphylococcus aureus infection as the cause of diseases classified elsewhere; I10 Essential (primary) hypertension; G89.29 Other chronic pain; E66.01 Morbid (severe) obesity due to excess calories; E78.5 Hyperlipidemia, unspecified; K21.9 Gastro-esophageal reflux disease without esophagitis; M54.9 Dorsalgia, unspecified; M85.80 Other specified disorders of bone density and structure, unspecified site; M19.90 Unspecified osteoarthritis, unspecified site; F32.9 Major depressive disorder, single episode, unspecified; Z68.43 Body mass index [BMI] 50.0-59.9, adult; Z79.82 Long term (current) use of aspirin ==